=== PATIENT | female | born 1995 | race Caucasian/White ===

== ENCOUNTER 2021-03-25 15:07 | Inpatient (IN) | payer MEDICAID ==
[~2021-03-25] VITALS: Ht 160 cm; Wt 82.7 kg
--- NOTE | 2021-03-25 16:00 | NUR ---
Pt Addendum: 03/25/21 at 1649 by FRANCA Pt moved to bed 24 from main ER. Pt ambulated over with PCT. Pt calm and cooperative. Pt placed in green scrubs, compliant with admission process. Mother at bedside.
[2021-03-25 16:16] LABS: BASOPHILS # (AUTO) 0.1 X10'3 (0-0.2); BASOPHILS % (AUTO) 0.8 % (0-1); EOSINOPHILS # (AUTO) 0.1 X10'3 (0-0.9); EOSINOPHILS % (AUTO) 1.4 % (0-6); HEMATOCRIT 40.4 % (35.0-45.0); HEMOGLOBIN 13.5 g/dl (12.0-16.0); LYMPHOCYTES # (AUTO) 2.4 X10'3 (1.1-4.8); LYMPHOCYTES % (AUTO) 32.3 % (21-51); MEAN CORPUSCULAR HEMOGLOBIN 30.4 PG (27.0-31.0); MEAN CORPUSCULAR HGB CONC 33.4 g/dL (33.0-36.5); MEAN CORPUSCULAR VOLUME 90.9 FL (78-98); MEAN PLATELET VOLUME 7.9 FL (7.4-10.4); MONOCYTES # (AUTO) 0.8 X10'3 (0-0.9); MONOCYTES % (AUTO) 10.6 % (2-12); NEUTROPHILS # (AUTO) 4.1 X10'3 (1.8-7.7); NEUTROPHILS % (AUTO) 54.9 % (42-75); PLATELET COUNT 305 X10'3 (140-440); RED BLOOD COUNT 4.45 X10'6 (4.20-5.60); RED CELL DISTRIBUTION WIDTH 14.8 % (11.5-14.5); WHITE BLOOD COUNT 7.5 X10'3 (4.5-11.0)
--- NOTE | 2021-03-25 16:30 | NUR ---
Pt continues to be calm. Pt denies all mental health symptoms as this time. Pt reports auditory hallucinations "when I have my episodes I hear voices in my head." Pt denies H/I. Pt has a dx of schizoprenia with first break 07/2020. Pt is under the care of Dr. Jackson at [phone]. Per. Dr. Martin medication changes were made to pt's home meds. Med rec correct and complete.
[2021-03-25] MEDS ORDERED: RISP2TAB97 PO (16:31)
[2021-03-25] MEDS ORDERED: HYDR50CA PO (16:31)
[2021-03-25] MEDS ORDERED: SERT25TA PO (16:31)
[2021-03-25] MEDS ORDERED: LURA40TA3 PO (16:31)
[2021-03-25] MEDS ORDERED: BENZ1TAB7 PO (16:31)
[2021-03-25 16:34] LABS: URINE HCG NEGATIVE (NEG)
[2021-03-25 16:36] LABS: UA COLLECTION TYPE CLN CATCH MIDSTREAM
[2021-03-25 16:36] LABS: ALANINE AMINOTRANSFERASE 23 U/L (12-78); ALBUMIN 3.8 G/DL (3.4-5.0); ALKALINE PHOSPHATASE 102 IU/L (46-116); ANION GAP 9 (8-16); ASPARTATE AMINO TRANSFERASE 15 U/L (10-37); BILIRUBIN,TOTAL 0.2 MG/DL (0.1-1.0); BLOOD UREA NITROGEN 6 MG/DL (7-18); BUN/CREATININE RATIO 7.3 (6.6-38.0); CALCIUM 9.2 MG/DL (8.5-10.1); CHLORIDE 107 MMOL/L (99-107); CREATININE 0.82 MG/DL (0.40-0.90); GLUCOSE 115 MG/DL (70-104); POTASSIUM 3.7 MMOL/L (3.5-5.1); SODIUM 142 MMOL/L (135-145); TOTAL CARBON DIOXIDE 26.3 MMOL/L (24-32); TOTAL PROTEIN 7.6 G/DL (6.4-8.2); eGFR 86 ML/MIN
[2021-03-25 16:37] LABS: CLARITY,URINE CLEAR (Clear); COLOR,URINE YELLOW (Yellow)
[2021-03-25 16:38] LABS: GLUCOSE, URINE NEGATIVE (Neg); KETONES,URINE TRACE mg/dl (Neg); LEUKOCYTE ESTERASE ,URINE NEGATIVE (Neg); NITRITES, URINE NEGATIVE (Neg); OCCULT BLOOD,URINE NEGATIVE (Neg); PROTEIN,URINE NEGATIVE (Neg); URINE AMPHETAMINE SCREEN NEGATIVE (Neg); URINE BARBITUATE SCREEN NEGATIVE (Neg); URINE BENZODIAZEPINES SCREEN NEGATIVE (Neg); URINE CANNABINOID SCREEN NEGATIVE (Neg); URINE COCAINE SCREEN NEGATIVE (Neg); URINE METHADONE SCREEN NEGATIVE (Neg); URINE OPIATE SCREEN NEGATIVE (Neg); URINE PHENCYCLIDINE SCREEN NEGATIVE (Neg); UROBILINOGEN,URINE 0.2 E.U/dL (0.2-1.0)
[2021-03-25 16:42] LABS: ETHANOL < 0.010 GM/DL (0.0-0.010)
[2021-03-25 16:43] LABS: ACETAMINOPHEN < 2.0 UG/ML (10-30)
--- NOTE | 2021-03-25 17:36 | NUR ---
Smitha longoria's mother cell [phone].
[2021-03-25] MEDS: lurasidone 20mg tablet PO SCH (17:46)
--- NOTE | 2021-03-25 20:12 | NUR ---
The patient is resting on her bed after eating 100% of her evening meal. She appears calm and answered all the evening assessment questions appropriately. She reports that her voices have been minimal today and she could not recall what they said. She currently denies that she has thoughts to harm herself or any one else. She stated that when she has a psychotic episode she becomes suicidal and homicidal.
--- NOTE | 2021-03-25 20:15 | NUR ---
The patient approached the nursing station and stated "I wanted to let you know I'm feeling a little aggressive right now"
[2021-03-25] MEDS: benztropine 1mg tablet PO SCH (20:19)
[2021-03-25] MEDS: hydrOXYzine 25 MG tablet PO PRN (20:19)
[2021-03-25] MEDS: risperiDONE 2mg tablet PO SCH (20:19)
--- NOTE | 2021-03-25 20:22 | NUR ---
patient given her HS medicatons and patient stated that her eyes feel like they have to look up and it was explained to her that it was a side effect of her medications and seth was given
[2021-03-25] MEDS ORDERED: lurasidone 20mg tablet PO SCH (21:00)
[2021-03-25] MEDS ORDERED: diphenhydrAMINE 25mg capsule PO ONE (22:30)
--- NOTE | 2021-03-25 22:32 | NUR ---
The patient is trying to walk back to her bed but her eyes are rolled up. Dr. Galdamez made aware and Dr. Ahuja stated that she had discussed the patient with her outpatient psychiatrist who has been adjusting her medications 2nd to dystonic reactions.
--- NOTE | 2021-03-25 22:34 | NUR ---
Psychiatric medication evaluation requested per Dr. Galdamez. Spoke with skiving machine operator on [facility], Ritchie DILLON.
--- NOTE | 2021-03-25 22:51 | NUR ---
Packet sent to [facility]
--- NOTE | 2021-03-26 00:31 | NUR ---
The patient appears to be sleeping
--- NOTE | 2021-03-26 01:57 | NUR ---
THe patient up briefly to use the bathroom but now is back in bed.
--- NOTE | 2021-03-26 04:05 | NUR ---
The patient up to use the bathroom.
--- NOTE | 2021-03-26 05:36 | NUR ---
The patient appears to be sleeping
--- NOTE | 2021-03-26 06:56 | NUR ---
Assumed care of pt. Pt appears to be sleeping, respirations even and unlabored.
[2021-03-26] MEDS: sertraline 50mg tablet PO SCH (08:46)
[2021-03-26] MEDS: risperiDONE 2mg tablet PO SCH ×2 (08:46→20:56)
[2021-03-26] MEDS: benztropine 1mg tablet PO SCH ×2 (08:46→20:56)
--- NOTE | 2021-03-26 09:05 | NUR ---
Pt awake eating her breakfast. Pt was compliant with medication and care. Pt reports intermittent auditory hallucinations "I felt a little angry today, but feeling better now." Pt states she feels her emotions "snowball" after episodes of "when my eyes roll back." (Occular gyro crisis). Pt states when it "gets bad, I feel homicidal." Pt presents with a flat affect, speech monotone. Pt is pleasant.
--- NOTE | 2021-03-26 11:09 | NUR ---
Pt sitting up in bed reading. Pt calm/ cooperative.
--- NOTE | 2021-03-26 13:46 | NUR ---
Pt finished 100% of lunch. Pt remains calm. Pt alternates reading and resting quietly. No behaviors noted.
--- NOTE | 2021-03-26 15:12 | NUR ---
Pt appears to be sleeping comfortably, respirations even and unlabored.
--- NOTE | 2021-03-26 17:10 | NUR ---
Pt sitting quietly on her bed reading. Pt continues to pleasant and calm.
[2021-03-26] MEDS: lurasidone 20mg tablet PO SCH (17:38)
[2021-03-26 20:00] VITALS: BP 126/79
[2021-03-26] MEDS: hydrOXYzine 25 MG tablet PO PRN (21:34)
--- NOTE | 2021-03-26 22:22 | NUR ---
Admission Note: Patient admitted for DTO, patient arrived on the unit at 1945 via wheel chair from [facility] ER. 5150 reads; Estelle states "I have been having strong urges to stab my mother" She states that if she were to go home she would not trust herself because "I feel fine, until I don't and I worry what I will do" Interview with patient on admission, patient states that when she takes Risperdal is gives her eye rolling, (saccadic eye movement) which is one of the triggers that makes her want to harm her mother. Patient is taking cogentin for this EPS. Patient has another unusual trigger, when she masturbates she cuts the vaginal opening with her finger nails. This chief underwriter asked patient to talk with her nurse if she is feeling the need to do self harm. Patient lives at home with 3 siblings and her mother. 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 Patient is child like and appears to be ineffectually delayed.
[2021-03-26 22:56] VITALS: BP 126/79
[2021-03-27 07:38] VITALS: BP 103/62
[2021-03-27] MEDS: risperiDONE 2mg tablet PO SCH ×2 (08:04→20:27)
[2021-03-27] MEDS: sertraline 50mg tablet PO SCH (08:04)
[2021-03-27] MEDS: benztropine 1mg tablet PO SCH ×2 (08:04→20:27)
[2021-03-27] MEDS: lurasidone 20mg tablet PO SCH (17:31)
--- NOTE | 2021-03-27 17:40 | NUR ---
Nursing Progress Note: Estelle Mckeon Legal hold: 5150 Client on involuntary status DTO Report received from nurse with use of SBAR: WILMA Dugan Why they are here: Per 5150 Estelle states "I have been having strong urges to stab my mother" She states that if she were to go home she would not trust herself because "I feel fine, until I don't and I worry what I will do" Assessment What has happened this shift: Pt. received sleeping in her room. Pt awoke to receive medications. 1:1 assessment completed at the bedside. Pt is pleasant and is articulate and open to discussion, denies S/I, H/I, A/VH at this time. Pt reports she previously had H/I about her brother. She was observed eating in the dining room alone in a chair. Pt. attended group this morning this morning and spent the remainder of the morning sitting on her bed reading. Pt. did attend snack and ate lunch in the dining room, but mainly kept to herself. Currently in room waiting for dinner. S/I, H/I: Denies A/VH: Denies Sleep: 8.0 hrs per NOC, intermittent napping ADL's: Independent Group attendance: Yes Were meds taken: Yes Any med S/E: None observed or reported this shift Mental Status Exam Appearance: Young, well groomed, dressed in unit scrubs Eye contact: Good Behavior: Pleasant and cooperative Speech: Clear Mood: "Good" Affect: Calm Thought process: Linear Thought Content: Linear Cognition: A&O X4 Insight: Good Judgment: Fair Interventions PRN's used: None Therapeutic interventions: 1:1 assessment, maintained a safe and supportive environment, provided clear and simple instructions, medication administration/education/monitoring, encouragement to attend groups, therapeutic communication, active listening, and maintained Q 15 minute safety checks. Restraints/seclusion/emergency medication: N/A Justification of Continued Inpatient Treatment: Require a safe and supportive environment
[2021-03-27 19:16] VITALS: BP 121/75
[2021-03-27] MEDS: hydrOXYzine 25 MG tablet PO PRN (22:21)
--- NOTE | 2021-03-27 23:17 | NUR ---
Nursing Progress Note: Legal hold: 5150 Client on involuntary status DTO Report received from nurse with use of SBAR: Chrissy DILLON Why they are here: Per 5150 Estelle states "I have been having strong urges to stab my mother" She states that if she were to go home she would not trust herself because "I feel fine, until I don't and I worry what I will do" Assessment What has happened this shift: Patient is calm, cooperative and friendly. Patient states that she had a good day with no suicidal thoughts. Patient also made a point to try and socialize with other patients. Patient did state feeling anxious because of the voices but is glad there not that bad today. Patient took medications without issue and talked to mother on the phone for 2hrs before going to bed. Patient slept with no issues. S/I, H/I: Denies A/VH: Denies Sleep: ADL's: Independent Group attendance: Yes Were meds taken: Yes Any med S/E: None observed or reported this shift Mental Status Exam Appearance: Young, well groomed, dressed in unit scrubs Eye contact: Good Behavior: Pleasant and cooperative Speech: Clear Mood: positive Affect: Calm Thought process: Linear Thought Content: Linear Cognition: A&O X4 Insight: Good Judgment: Fair Interventions PRN's used: None Therapeutic interventions: 1:1 assessment, maintained a safe and supportive environment, provided clear and simple instructions, medication administration/education/monitoring, encouragement to attend groups, therapeutic communication, active listening, and maintained Q 15 minute safety checks. Restraints/seclusion/emergency medication: N/A Justification of Continued Inpatient Treatment: Require a safe and supportive environment
[2021-03-28 07:36] VITALS: BP 99/66
[2021-03-28] MEDS: risperiDONE 2mg tablet PO SCH (08:36)
[2021-03-28] MEDS: sertraline 50mg tablet PO SCH (08:36)
[2021-03-28] MEDS: benztropine 1mg tablet PO SCH ×2 (08:36→20:02)
[2021-03-28] MEDS ORDERED: busPIRone 5mg tablet PO ONE (08:55)
--- NOTE | 2021-03-28 12:44 | NUR ---
Nursing Progress Note Legal hold: 5150 Client on involuntary status DTO Report received from nurse WILMA Dugan with use of SBAR Why they are here: Per 5150 Estelle states "I have been having strong urges to stab my mother" She states that if she were to go home she would not trust herself because "I feel fine, until I don't and I worry what I will do" Assessment What has happened this shift: Pt asleep in her room beginning of the shift. Pt up for meals and snacks. She took a nap after breakfast. Pt later observed reading a book sitting in her room. Pt is compliant with treatment. She is calm and quiet keeping to herself and isolating. S/I, H/I: Denies A/VH: Denies Sleep: Napped today ADL's: Independent Group attendance: Yes Were Meds taken: Yes Any med S/E: None observed or reported this shift Mental Status Exam Appearance: Nicely dressed young lady with black hair. Eye contact: Good Behavior: Pleasant and cooperative Speech: Clear Mood: "I'm fine." Affect: Calm Thought process: Linear Thought Content: "Just reading my book." Cognition: A&O X4 Insight: Good Judgment: Fair Interventions PRN's used: None Therapeutic interventions: Provided 1:1 assessment, medication administration/education/monitoring, encouragement to attend groups, therapeutic communication, active listening, and maintained Q 15 minute safety checks. Restraints/seclusion/emergency medication: N/A Justification of Continued Inpatient Treatment: Require a safe and supportive environment
[2021-03-28] MEDS: busPIRone 5mg tablet PO SCH ×2 (13:21→20:02)
[2021-03-28] MEDS: lurasidone 20mg tablet PO SCH (17:50)
[2021-03-28 19:00] VITALS: BP 119/76
[2021-03-28] MEDS: risperiDONE 0.5mg tablet PO SCH (20:03)
[2021-03-28] MEDS: hydrOXYzine 25 MG tablet PO PRN (22:12)
--- NOTE | 2021-03-29 01:19 | NUR ---
Nursing Progress Note: Legal hold: 5150 Client on involuntary status DTO Report received from nurse with use of SBAR: Alexis RN Why they are here: Per 5150 Estelle states "I have been having strong urges to stab my mother" She states that if she were to go home she would not trust herself because "I feel fine, until I don't and I worry what I will do" Assessment What has happened this shift: Patient spent shift isolated in room except for going into activates room to talk to mother on the phone. Patient states she has had a good day today and hasn't heard any voices. Patient also states not feeling anxious today and feels she is already improving. Patient took all medications without issues and only got up once in the night complaining of upset stomach but was soothed with saltine crackers. S/I, H/I: Denies A/VH: Denies Sleep: check sleep assessment ADL's: Independent Group attendance: Yes Were meds taken: Yes Any med S/E: None observed or reported this shift Mental Status Exam Appearance: Young, well groomed, dressed in unit scrubs Eye contact: Good Behavior: Pleasant and cooperative Speech: Clear Mood: positive Affect: Calm Thought process: Linear Thought Content: Linear Cognition: A&O X4 Insight: Good Judgment: Fair Interventions PRN's used: None Therapeutic interventions: 1:1 assessment, maintained a safe and supportive environment, provided clear and simple instructions, medication administration/education/monitoring, encouragement to attend groups, therapeutic communication, active listening, and maintained Q 15 minute safety checks. Restraints/seclusion/emergency medication: N/A Justification of Continued Inpatient Treatment: Require a safe and supportive environment
[2021-03-29 07:36] VITALS: BP 115/73
[2021-03-29] MEDS: risperiDONE 0.5mg tablet PO SCH ×2 (08:30→20:00)
[2021-03-29] MEDS: benztropine 1mg tablet PO SCH ×2 (08:30→20:00)
[2021-03-29] MEDS: busPIRone 5mg tablet PO SCH ×3 (08:30→20:00)
[2021-03-29] MEDS: sertraline 50mg tablet PO SCH (08:31)
--- NOTE | 2021-03-29 11:45 | NUR ---
Nursing Progress Note Legal hold: 5150 Client on involuntary status DTO Report received from nurse WILMA Dugan with use of SBAR Why they are here: Per 5150 Estelle states "I have been having strong urges to stab my mother" She states that if she were to go home she would not trust herself because "I feel fine, until I don't and I worry what I will do" Assessment What has happened this shift: Pt isolates to her room most of the shift except for meals, and snacks. Pt will go to groups. Pt reports medication changes, "they are fine." She endorses a decrease of anxiety due to the addition of buspirone "a few days ago." She isolates when she eats in the community room. She isolates to her room the rest of the shift. S/I, H/I: Denies A/VH: Denies Sleep: Napped in AM ADL's: Independent Group attendance: N/A Were Meds taken: Yes Any med S/E: None noted or reported Mental Status Exam Appearance: Nicely dressed young lady with black hair wearing green scrubs Eye contact: Good Behavior: Pleasant and cooperative Speech: Clear Mood: "Good" Affect: Calm Thought process: Linear Thought Content: "Oh, I am fine." Cognition: A&O X4 Insight: Good Judgment: Fair Interventions PRN's used: None Therapeutic interventions: Provided 1:1 assessment, medication administration/education/monitoring, encouragement to attend groups, therapeutic communication, active listening, and maintained Q 15 minute safety checks. Restraints/seclusion/emergency medication: N/A Justification of Continued Inpatient Treatment: Require a safe and supportive environment
[2021-03-29] MEDS: lurasidone 20mg tablet PO SCH (18:00)
[2021-03-29 19:17] VITALS: BP 115/76
[2021-03-29] MEDS: hydrOXYzine 25 MG tablet PO PRN (20:00)
--- NOTE | 2021-03-29 22:38 | NUR ---
Nursing Progress Note Legal hold: 5250 Client on involuntary status DTO Report received from WILMA Lowe with use of SBAR Why they are here: Per 5150 Estelle states "I have been having strong urges to stab my mother" She states that if she were to go home she would not trust herself because "I feel fine, until I don't and I worry what I will do" Assessment What has happened this shift: Patient observed talking on the phone and sitting in the community room at the beginning of shift. Pleasant and cooperative with care; compliant with medication. PRN Atarax provided per patient equest. Patient denies SI, HI, A/VH; does not appear to be responding to IS and no delusional thought content expressed. Patient participated in HS snack, continued to talk on the phone and watch TV in the community room prior to bed; observed sleeping and does not appear to be having difficulty. Patient was served 5250 this shift by CRN; she appeared to handle it well. S/I, H/I: Denies A/VH: Denies Sleep: Refer to sleep assessment ADL's: Independent Group attendance: NA Were Meds taken: Yes Any med S/E: None observed or reported Mental Status Exam Appearance: Neat and appropriately dressed in green unit attire Eye contact: Good Behavior: Pleasant and cooperative, social Speech: Clear, audible, regular rate rhythm Mood: Euthymic Affect: Animated Thought process: Linear Thought Content: Meeting needs Cognition: A&O X4 Insight: Good Judgment: Fair Interventions PRN's used: Atarax Therapeutic interventions: Provided 1:1 assessment, medication administration/education/monitoring, encouragement to attend groups, therapeutic communication, active listening, and maintained Q 15 minute safety checks. Restraints/seclusion/emergency medication: N/A Justification of Continued Inpatient Treatment: Require a safe and supportive environment
[2021-03-30 07:46] VITALS: BP 121/70
[2021-03-30] MEDS: busPIRone 5mg tablet PO SCH ×3 (09:01→20:26)
[2021-03-30] MEDS: sertraline 50mg tablet PO SCH (09:01)
[2021-03-30] MEDS: risperiDONE 0.5mg tablet PO SCH ×2 (09:01→20:26)
[2021-03-30] MEDS: benztropine 1mg tablet PO SCH ×2 (09:01→20:20)
--- NOTE | 2021-03-30 13:39 | NUR ---
PROBABLE CAUSE HEARING Patients Name: Estelle Mckeon Admission Date: 03/26/2021 Date of 5150: 03/26/2021 Written by: [facility] Criteria: DTO Summary of Facts: Brought to ED by mom due to SI, HI. Stated I have been having strong urges to stab my mother. States if she were to go home, she would not trust herself, states I feel fine, until I dont and I worry about what I will do Date of 525: 03/29/21 Written by: Chiqui Criteria: DTS, DTO Summary of Facts: Admitted for SI and HI. Pt continues to have episodic perseverative thoughts including thoughts of harming others and other compulsions Diagnosis: OCD Behavior during past 48 HRS: Has shown quite a bit of improvement but is still reporting episodic thoughts of harm. This morning she told the dr that she was having thoughts of harming another doctor. FOOD: 100 SLEEPIN.75 ADLS: ind MCFP: Has housing MEDICATION DOSAGE FREQUENCY DURATION Latuda 40 mg po ws Cogentin 1 mg po bid Risperdal 0.5 mg po bid Buspar 10 mg po tid Zoloft 150 mg po daily Atarax 50 mg prn last took yesterday
--- NOTE | 2021-03-30 14:46 | NUR ---
Pt. attended group today. We talked about hearing voices and read an article about coping strategies. We discussed what coping strategies they had success with in the past. We also talked about what triggers hearing voices as well. We started with scaling their level of voice hearing today by scaling where they fall from 0-10. (0 is low distress and 10 is very disturbing voices). Pt. was quiet in the group today but did share her thoughts when asked. She shared that she didn't feel she had any healthy coping skills at this point so felt that this article and group was very helpful to her. She sat and the back at the group and appeared a bit shy in her demeanor, she was calm and compliant. She was alert and oriented X 4. Her thought content and thought process appeared WNL. Her mood appeared sad with a flat affect. Sofy Wan LCSW
--- NOTE | 2021-03-30 15:09 | NUR ---
Initial: Pt admitted w/ suicidal and homicidal ideations per EMR. Pt able to eat well, 100% avg intake on Regular diet meeting needs. [facility] 03/28. No nutritional intervention implemented at this time, will continue to monitor. Recs: 1. Continue Reuglar diet as tolerated 2. Bowel care per rx 3. Weekly wts Addendum: 03/30/21 at [address] Amended: Links added.
--- NOTE | 2021-03-30 17:40 | NUR ---
Nursing Progress Note: SantinorobertoEstelle Legal hold: 5250 Client on involuntary status DTO Report received from WILMA Rice with use of SBAR Why they are here: Per 5150 Estelle states "I have been having strong urges to stab my mother" She states that if she were to go home she would not trust herself because "I feel fine, until I don't and I worry what I will do" Assessment What has happened this shift: Patient observed sleeping in bed at change of shift. She joined in the community room with peers for breakfast, noted sitting quietly by herself. She appears polite, composed, and cooperative with care. She appears shy in demeanor with a restricted affect. Patient endorsed that she is doing good this morning. She responds when approached and asked direct questions, however, does not interact frequently with staff or other peers on the unit. She retreated back to her room after breakfast, noted sleeping in bed for a short period of time. 1:1 assessment completed, lungs CTA. She is compliant with all medications. Patient endorsed feeling a little anxious today, however, declined PRN Atarax for anxiety. She joined in group therapy today, noted sitting quietly and listening, but did share her thoughts when asked. She denies SI/HI, AH or VH. Does not appear internally preoccupied. Patient was observed sitting in the recreation room by herself around 1400, noted gazing out the window quietly. She spent the majority of the day self-isolating to her room. She was encouraged to participate on the unit throughout the day. She participated in the community room with peers for all meal and snack times. S/I, H/I: Denies A/VH: Denies Sleep: Pt slept 6.75 hours last night per NOC shift, intermittently throughout the day ADL's: Independent Group attendance: Yes Were Meds taken: Yes Any med S/E: None observed or reported Mental Status Exam Appearance: Neat, clean, groomed brown hair, wearing green unit scrubs Eye contact: Good Behavior: Pleasant and cooperative, shy, reserved Speech: Clear, soft, WNL Mood: Euthymic, composed Affect: Restricted with animation at times Thought process: Linear Thought Content: Meeting needs Cognition: A&O X4 Insight: Good Judgment: Fair Interventions PRN's used: None Therapeutic interventions: Established rapport, provided 1:1 assessment, medication administration/education/monitoring, encouragement to attend groups, therapeutic communication, active listening, encouragement to participate on the unit, and maintained Q 15 minute safety checks. Restraints/seclusion/emergency medication: N/A Justification of Continued Inpatient Treatment: Patient requires safe and supportive environment, crisis interruption, and medication adjustment and monitoring. Per Dr. Florian, patient requires medication adjustment to reduce high risk thoughts. She continues to be high risk for discharge at this point.
[2021-03-30] MEDS: lurasidone 20mg tablet PO SCH (17:46)
[2021-03-30 19:42] VITALS: BP 109/74
[2021-03-30] MEDS: hydrOXYzine 25 MG tablet PO PRN (20:26)
--- NOTE | 2021-03-30 22:03 | NUR ---
Nursing Progress Note Legal hold: 5250 Client on involuntary status DTO Report received from WILMA Lowe with use of SBAR Why they are here: Per 5150 Estelle states "I have been having strong urges to stab my mother" She states that if she were to go home she would not trust herself because "I feel fine, until I don't and I worry what I will do" Assessment What has happened this shift: Patient observed talking on the phone in the community room at the beginning of shift. Pleasant and cooperative with care; compliant with medications. Buspirone and Risperidone started this shift with no ASE observed or reported. PRN Atarax provided this shift. Patient reported increased anxiety, auditory hallucinations and homicidal thoughts this shift. Patient's behavior presents incongruent as she is laughing and holding long conversations on the phone. Patient participated in HS snack and showered prior to bed; observed sleeping and does not appear to be having difficulty. S/I, H/I: Reports HI A/VH: Reports AH Sleep: Refer to sleep assessment ADL's: Independent Group attendance: NA Were Meds taken: Yes Any med S/E: None observed or reported Mental Status Exam Appearance: Showered, neat and appropriately dressed in green unit attire Eye contact: Good Behavior: Pleasant and cooperative, social Speech: Clear, audible, regular rate rhythm Mood: Anxious Affect: Animated Thought process: Linear Thought Content: Meeting needs, increased anxiety and homicidal thoughts Cognition: A&O X4 Insight: Good Judgment: Fair Interventions PRN's used: Atarax Therapeutic interventions: Provided 1:1 assessment, medication administration/education/monitoring, encouragement to attend groups, therapeutic communication, active listening, and maintained Q 15 minute safety checks. Restraints/seclusion/emergency medication: N/A Justification of Continued Inpatient Treatment: Require a safe and supportive environment
[2021-03-31] MEDS: busPIRone 5mg tablet PO SCH ×3 (07:54→20:57)
[2021-03-31] MEDS: risperiDONE 0.5mg tablet PO SCH ×2 (07:54→20:55)
[2021-03-31] MEDS: benztropine 1mg tablet PO SCH ×2 (07:54→20:55)
[2021-03-31] MEDS: sertraline 50mg tablet PO SCH (07:54)
[2021-03-31 07:56] VITALS: BP 109/69
--- NOTE | 2021-03-31 14:33 | NUR ---
Pt. attended group today. We talked about hearing voices again continues to read an article about coping strategies. We discussed what coping strategies they had success with in the past and what was one new coping strategy they would like to try. Pt. was quiet throughout group. Her demeanor is calm and compliant. She doesn't usually share unless asked to and then she will engage and share her thoughts. She was able to pick out one coping skill she would like to work on and was feeling positive about gaining new healthy coping mechanisms as yesterday she reported that she had none. She was alert and oriented X 4. Her thought content and thought process was WNL. Sofy Wan LCSW
--- NOTE | 2021-03-31 17:49 | NUR ---
Nursing Progress Note: SantinoEstelle mejia Legal hold: 5250 Client on involuntary status DTO Report received from WILMA Petty with use of SBAR Why they are here: Per 5150 Estelle states "I have been having strong urges to stab my mother" She states that if she were to go home she would not trust herself because "I feel fine, until I don't and I worry what I will do" Assessment What has happened this shift: Patient observed sleeping in bed at shift change. She was compliant with all medications. She joined in the community room for breakfast with peers. 1:1 assessment completed, lungs CTA. She denies SI/HI, AH or VH. Does not appear internally preoccupied. She continues to present as polite, composed, and cooperative with care. Patient endorsed to this magnetic tape typewriter operator that she has been dealing with episodes of her eyes looking up and homicidal thoughts coming into her head. Patient specifically stating that she has been having thoughts of hurting her mother even though she is really close with her mom and would never want to hurt her. She continues to appear shy in demeanor with a restricted affect. She joined in group therapy today, noted sitting quietly and listening, but did share her thoughts when asked. She participated in art therapy today and was observed sitting by herself, but still engaging appropriately in the group activities with peers and drawing a picture of a colorful heart. She was noted napping intermittently throughout the day. Patient was noted sitting in her room periodically throughout the day reading a book. She was encouraged to participate on the unit throughout the day. She participated in the community room with peers for all meal and snack times. S/I, H/I: Denies A/VH: Denies Sleep: Pt slept 7.25 hours last night per NOC shift, intermittently throughout the day ADL's: Independent Group attendance: Yes Were Meds taken: Yes Any med S/E: None observed or reported Mental Status Exam Appearance: Neat, clean, groomed brown hair, wearing green unit scrubs Eye contact: Good Behavior: Pleasant and cooperative, shy, reserved Speech: Clear, soft, WNL Mood: Euthymic, composed Affect: Restricted with animation at times Thought process: Linear Thought Content: Meeting needs Cognition: A&O X4 Insight: Good Judgment: Fair Interventions PRN's used: None Therapeutic interventions: Provided 1:1 assessment, medication administration/education/monitoring, encouragement to attend groups, therapeutic communication, active listening, encouragement to participate on the unit, and maintained Q 15 minute safety checks. Restraints/seclusion/emergency medication: N/A Justification of Continued Inpatient Treatment: Patient requires safe and supportive environment, crisis interruption, and medication adjustment and monitoring. Per Dr. Florian, Patient continues to be high risk because of her intrusive perseverative thoughts of harming others. In my opinion she does not exhibit any psychotic symptoms and I am currently unsure if indeed she has a thought disorder.
[2021-03-31] MEDS: lurasidone 20mg tablet PO SCH (17:54)
[2021-03-31 19:27] VITALS: BP 114/80
[2021-03-31] MEDS: hydrOXYzine 25 MG tablet PO PRN (20:56)
--- NOTE | 2021-04-01 02:46 | NUR ---
Nursing Progress Note: Legal hold: 525 Client on involuntary status DTO Report received from nurse with use of SBAR: Chrissy DILLON Why they are here: Per 5150 Estelle states "I have been having strong urges to stab my mother" She states that if she were to go home she would not trust herself because "I feel fine, until I don't and I worry what I will do" Assessment What has happened this shift: Patient was quiet and friendly. Patient spent majority of the shift in her room. Patient then spent 3.5 hours talking on the phone with her mother. Patient appeared calm and stated she had no suicidal thoughts or feelings patient took all scheduled medications and her PRN Hydroxyzine 25mg then went to sleep. S/I, H/I: Denies A/VH: Denies Sleep: check sleep assessment ADL's: Independent Group attendance: Yes Were meds taken: Yes Any med S/E: None observed or reported this shift Mental Status Exam Appearance: Young, well groomed, dressed in unit scrubs Eye contact: Good Behavior: Pleasant and cooperative Speech: Clear Mood: positive Affect: Calm Thought process: Linear Thought Content: Linear Cognition: A&O X4 Insight: Good Judgment: Fair Interventions PRN's used: None Therapeutic interventions: 1:1 assessment, maintained a safe and supportive environment, provided clear and simple instructions, medication administration/education/monitoring, encouragement to attend groups, therapeutic communication, active listening, and maintained Q 15 minute safety checks. Restraints/seclusion/emergency medication: N/A Justification of Continued Inpatient Treatment: Require a safe and supportive environment
[2021-04-01] MEDS ORDERED: hydrOXYzine 25 MG tablet PO PRN (07:30)
[2021-04-01] MEDS: benztropine 1mg tablet PO SCH ×2 (07:50→20:42)
[2021-04-01] MEDS: busPIRone 5mg tablet PO SCH ×3 (07:50→20:42)
[2021-04-01] MEDS: sertraline 50mg tablet PO SCH (07:51)
[2021-04-01 07:55] VITALS: BP 99/62
--- NOTE | 2021-04-01 09:05 | NUR ---
Pt. attended group today. We talked about hearing voices again to focus on finding patterns to how the voices get triggered. We discussed ways they can take control over the voices. We mostly talked about grounding and this Deck Hand lead different grounding exercises such as 478 breathing techniques and [id number] grounding technique. Pt. tends to be quiet in group unless directly asked questions and she will give appropriate answers. When given the activity sheet she just stared at the sheet and did not write anything on the paper, when this Deck Hand asked if she needed help and she reported that she could read. This Deck Hand asked her if she needed some assistance with the questions and she said she did. Once we talked it through a bit she then started engaging with the questions and writing answers. Pt. appears at times to need a bit of extra prompting in order to engage in an activity, not sure if it is because she doesn't understand the task. She does not appear resistant to things, her demeanor was calm and compliant. She was alert and oriented X 4. Her thought content and thought process was WNL. Sofy Wan LCSW
[2021-04-01] MEDS ORDERED: lurasidone 60mg tablet PO SCH (17:00)
--- NOTE | 2021-04-01 17:56 | NUR ---
Nursing Progress Note: Estelle Mckeon Legal hold: 5250 Client on involuntary status DTO Report received from WILMA Petty with use of SBAR Why they are here: Per 5150 Estelle states "I have been having strong urges to stab my mother" She states that if she were to go home she would not trust herself because "I feel fine, until I don't and I worry what I will do" Assessment What has happened this shift: RN received pt. asleep in bed at start of shift. Pt awake and resting in bed before breakfast. Pt. took all medications. Pt. reports that she is no longer experiencing S/E after Risperdal was D/Cd. Pt. reports she is doing good but gives minimal information during interview. Pt. observed attending groups and doing artwork in the community room. Pt. withdraws to her room at times to nap. S/I, H/I: Denies A/VH: Denies Sleep: Pt slept 7.5 hours last night per NOC shift, intermittently throughout the day ADL's: Independent Group attendance: Yes Were Meds taken: Yes Any med S/E: Denies Mental Status Exam Appearance: Neat, clean, groomed brown hair, wearing green unit scrubs Eye contact: Intense staring at times. Behavior: Cooperative and pleasant, socially withdrawn. Speech: Minimal, otherwise WNL. Mood: Euthymic with some anxiety. Affect: Congruent with mood. Thought process: Thought blocking. Thought Content: Circumstantial. Cognition: A&O X4 Insight: Good Judgment: Fair Interventions PRN's used: None Therapeutic interventions: Provided 1:1 assessment, medication administration/education/monitoring, encouragement to attend groups, therapeutic communication, active listening, encouragement to participate on the unit, and maintained Q 15 minute safety checks. Restraints/seclusion/emergency medication: N/A Justification of Continued Inpatient Treatment: Patient requires safe and supportive environment, crisis interruption, and medication adjustment and monitoring. Per Dr. Florian, Patient continues to be high risk because of her intrusive perseverative thoughts of harming others. In my opinion she does not exhibit any psychotic symptoms and I am currently unsure if indeed she has a thought disorder.
[2021-04-01 19:29] VITALS: BP 120/80
--- NOTE | 2021-04-02 03:48 | NUR ---
Nursing Progress Note: Legal hold: 525 Client on involuntary status DTO Report received from nurse with use of SBAR: Chrissy DILLON Why they are here: Per 5150 Estelle states "I have been having strong urges to stab my mother" She states that if she were to go home she would not trust herself because "I feel fine, until I don't and I worry what I will do" Assessment What has happened this shift: Patient was in a positive mood. Patient states she is feeling in a much better mindset. She has gone the whole day without voices and doesn't feel like causing any harm to herself or others. Patient spent multiple hours talking on the phone with family. Patient then took all scheduled medications without a problem and went to bed. S/I, H/I: Denies A/VH: Denies Sleep: check sleep assessment ADL's: Independent Group attendance: Yes Were meds taken: Yes Any med S/E: None observed or reported this shift Mental Status Exam Appearance: Young, well groomed, dressed in unit scrubs Eye contact: Good Behavior: Pleasant and cooperative Speech: Clear Mood: positive Affect: Calm Thought process: Linear Thought Content: Linear Cognition: A&O X4 Insight: Good Judgment: Fair Interventions PRN's used: None Therapeutic interventions: 1:1 assessment, maintained a safe and supportive environment, provided clear and simple instructions, medication administration/education/monitoring, encouragement to attend groups, therapeutic communication, active listening, and maintained Q 15 minute safety checks. Restraints/seclusion/emergency medication: N/A Justification of Continued Inpatient Treatment: Require a safe and supportive environment
[2021-04-02 07:00] VITALS: BP 106/67
[2021-04-02] MEDS: busPIRone 5mg tablet PO SCH ×2 (07:10→12:40)
[2021-04-02] MEDS: benztropine 1mg tablet PO SCH (07:10)
[2021-04-02] MEDS: sertraline 50mg tablet PO SCH (07:10)
--- NOTE | 2021-04-02 12:18 | NUR ---
DCP Presenting Issues: Attending physician requesting clinician's support with dcp activities as pt will d/c today. Interventions: Clinician met with pt and engaged her in dcp activities. Per discussion, pt will contact her mother at d/c for transportation home. Clinician also discussed support groups in outpatient setting as an option for pt to engage with, pt was open to this, information for [facility] was provided. Clinician had t/c w/[facility] and scheduled pt's post-hospital f/u with Dr. Carrillo on 04/13 @ 11AM. Clinician had t/with pt's mother and reviewed dcp with her. Plan: Pt to d/c today. trent Loomis LCSW Addendum: 04/02/21 at 1224 by Trent Loomis SS Amended: Links added.
[2021-04-02] MEDS ORDERED: LURA60TA PO (13:00)
[2021-04-02] MEDS ORDERED: SERT-433 PO (13:00)
[2021-04-02] MEDS ORDERED: HYDR-3686 PO (13:00)
[2021-04-02] MEDS ORDERED: BENZ1TAB7 PO (13:00)
[2021-04-02] MEDS ORDERED: BUSP-28 PO (13:00)
--- NOTE | 2021-04-02 17:30 | NUR ---
Discharge Note: Discharge plan reviewed with patient. Verbalizes understanding and states, Im really excited! No s/sx acute distress noted. Escorted out by staff and picked up by her Mom to be taken back to her residence where she lives with her Mom. Prescriptions were sent to patient pharmacy of choice at [facility]. Discharged with all of her personal belongings at 14:00 with the following instructions: Follow-Up: Patient has been scheduled/referred to the following providers for post-hospital discharge and aftercare treatment. Psychiatrist: Your post-hospital follow-up is scheduled with Dr. Carrillo at [facility] on TuesdayApril 13 at 11:00AM Primary Care Provider: Dr. Florian recommends that you establish services with a primary care provider shortly after your discharge. Below are primary care providers who will accept your health insurance plan: [facility] [address] [place] [address] [address] [facility] & [address] [address] Therapist/Director Of Early Childhood: Elsie Chase will contact you upon discharge to schedule her appointment with you Discharge Address: Home [address] [facility] [address] Transportation: Pt will call mom to pick her up Patient given community crisis services information and National suicide hotline handout. Please call [phone] for your second outpatient smoking cessation appointment. Resources for education regarding mental illness: [facility] [address] [place] [id number] For urgent mental health crisis needs please contact Mobile Crisis Outreach Team Tuesday through Tuesday 8:30a to 5:00pm. [facility] Out[facility] Team [address] [place] [phone]
--- NOTE | 2021-04-03 05:29 | NUR ---
POST PRODUCE MANAGER NOTE: Clients mother called regarding new involuntary muscle movements. Namely tremors and jaw clenching. Dr Florian was notified and recommended Latuda be held 04/02. Latuda was to be resumed 04/03 and client was to be monitored for EPS. Dr Florian recommended client return to ED if EPS continued or worsened. The RN conveyed this to clients mother, and encouraged her to contact clients' outpatient provider.
--- NOTE | 2021-04-03 20:22 | NUR ---
POST DISCHARGE MEDICATION SIDE EFFECTS: Spoke with Smitha Mckeon (Estelle's mom). Clients involuntary movements have decreased. Spoke with HAKAN Dash. Client is to hold Latuda again tonight. Client is to take Latuda tomorrow w/o food in order to decrease absorbed dose. Client expressed a desire to stay on anti-psychotic's as her psychosis has improved. Clients mother was encouraged to return to ED if clients symptoms worsen. Encouraged them to contact out-patient provided.
== END 2021-04-02 14:00 | disposition home or self-care (01) | DRG 755 ==
LOC: ER 15:07 → ADULT MH 03-26 17:13
PROVIDERS: ADMIT Psychiatry & Neurology Psychiatry; ATTEND Psychiatry & Neurology Psychiatry
DX: F42.9 Obsessive-compulsive disorder, unspecified (principal); R45.851 Suicidal ideations; R45.850 Homicidal ideations; F41.9 Anxiety disorder, unspecified; F20.9 Schizophrenia, unspecified; Z20.822 Contact with and (suspected) exposure to COVID-19; Z81.8 Family history of other mental and behavioral disorders; Z79.899 Other long term (current) drug therapy
CPT/HCPCS: 36415; 80053; 80305; 80320; 80329; 81003; 81025; 84443; 85025; 87081; 87635; 99285; C9803; Q0163; Q0177